=== PATIENT | male | born 1970 | race Caucasian/White ===

== ENCOUNTER 2017-03-06 22:09 | Emergency (ER) | payer MEDICAID, OTHER ==
[~2017-03-06] VITALS: Ht 167.6 cm; Wt 75.0 kg
[2017-03-07 00:33] LABS: BASOPHILS % 0.8 % (0.0-2.0); EOSINOPHILS % 8.1 % (0.0-5.0); HEMATOCRIT. 42.1 % (42.0-52.0); HEMOGLOBIN. 14.6 g/dL (14.0-18.0); LYMPHOCYTES % 45.9 % (20.0-50.0); MEAN CORPUSCULAR HEMOGLOBIN 31.4 pg (28.0-32.0); MEAN CORPUSCULAR VOLUME 90.4 fL (80.0-94.0); NEUTROPHILS % 38.2 % (40.0-76.0); PLATELET 290 x1000/uL (130-400); RED BLOOD CELL COUNT 4.66 mill/uL (4.7-6.1)
[2017-03-07 00:47] LABS: CARBON DIOXIDE 24 mEq/L (21-32); CHLORIDE 107 mEq/L (98-107); ETHANOL BLOOD 286 mg/dL; TROPONIN I < 0.02 ng/mL (0.00-0.04)
[2017-03-07 06:03] VITALS: BP 117/62
== END 2017-03-07 07:05 | disposition home or self-care (01) ==
LOC: ER 22:09
DX: T51.0X1A Toxic effect of ethanol, accidental (unintentional), initial encounter (principal); R41.82 Altered mental status, unspecified; R07.2 Precordial pain; F17.200 Nicotine dependence, unspecified, uncomplicated; F11.10 Opioid abuse, uncomplicated; Y92.89 Other specified places as the place of occurrence of the external cause
CPT/HCPCS: 36415; 70450; 71010; 80053; 83690; 83880; 84484; 85025; 85379; 93005; 99285; G0482